=== PATIENT | female | born 1985 | race Caucasian/White ===

== ENCOUNTER 2016-08-23 23:53 | Outpatient (CLI) | payer OTHER ==
[~2016-08-23 23:53] MED LIST: MACROBID100 MG PO; ZOFRAN ODT4 MG PO
[2016-08-24 00:22] VITALS: BP 117/72
[2016-08-24 00:33] VITALS: BP 117/72
[2016-08-24] MEDS ORDERED: BUPRENORPHINE HC2 MG SL (00:47)
[2016-08-24] MEDS ORDERED: PRENATAL TABLE1 EAC3 PO (00:48)
[2016-08-24] MEDS ORDERED: IRON325 MG PO (00:49)
== END 2016-08-24 02:03 | disposition home or self-care (01) ==
LOC: LDRP-OP 23:53 → 2WEST 23:54 → LDRP-OP 10-28 14:43
DX: O47.03 False labor before 37 completed weeks of gestation, third trimester (principal); Z3A.35 35 weeks gestation of pregnancy; O34.219 Maternal care for unspecified type scar from previous cesarean delivery
CPT/HCPCS: 59025; G0378

== ENCOUNTER 2016-09-12 01:34 | Outpatient (CLI) | payer OTHER ==
[~2016-09-12] VITALS: Ht 165.1 cm; Wt 70.0 kg
[~2016-09-12 01:34] MED LIST changes: +BUPRENORPHINE HC2 MG SL; +IRON325 MG PO; +PRENATAL TABLE1 EAC3 PO
[2016-09-12 01:59] VITALS: BP 120/72
== END 2016-09-12 02:56 | disposition home or self-care (01) ==
LOC: LDRP-OP 01:34 → 2WEST 01:35 → LDRP-OP 10-22 02:09
DX: O47.1 False labor at or after 37 completed weeks of gestation (principal); O99.89 Other specified diseases and conditions complicating pregnancy, childbirth and the puerperium; Z3A.37 37 weeks gestation of pregnancy
CPT/HCPCS: 59025; G0378

== ENCOUNTER 2016-09-21 09:07 | Inpatient (IN) | payer OTHER ==
[~2016-09-21] VITALS: Ht 165.1 cm; Wt 70.5 kg
[2016-09-21 09:57] LABS: EOSINOPHIL (%) 1.3 % (0-5); EOSINOPHIL COUNT 0.1 K/uL (0-0.3); HEMATOCRIT 34.5 % (36.0-46.0); IMMATURE GRANULOCYTE (%) 1.4 % (0.0-0.7); IMMATURE GRANULOCYTE COUNT 0.1 K/uL; LYMPHOCYTE COUNT 2.5 K/uL (1.0-2.8); MCH 31.8 PG (29.0-34.0); MCHC 33.6 G/DL (30.0-36.0); MCV 94.5 FL (83-99); MONOCYTE (%) 7.6 % (3-12); MONOCYTE COUNT 0.8 K/uL (0-0.8); NEUTROPHIL (%) 64.7 % (45-76); NEUTROPHIL COUNT 6.6 K/uL (1.8-6.4); PLATELET COUNT 201 K/uL (156-360); RBC DIS.WIDTH-SD 48.4 % (39-53); RED BLOOD COUNT 3.65 M/uL (3.80-5.20); WHITE BLOOD COUNT 10.1 K/uL (4.1-10.2)
[2016-09-21 10:25] LABS: ANION GAP 9 MEQ/L (2-14); CHLORIDE 105 MEQ/L (99-109); SAMPLE HEMOLYSIS CHECK 0; SAMPLE ICTERIC CHECK 0; SAMPLE LIPEMIA CHECK 0; SODIUM 135 MEQ/L (136-147)
[2016-09-21 10:30] LABS: GFR ESTIMATE (CALCULATED) > 59 mL/min/; GLUCOSE 87 mg/dL (70-99); UREA NITROGEN (BUN) 5 mg/dL (9-23)
[2016-09-21 11:12] LABS: AMPHETAMINES QUANT VALUE 0 NG/ML; BARBITUATES QUANT VALUE 0 NG/ML; BENZODIAZEPINES QUANT VALUE 0 NG/ML; BENZODIAZEPINES, URINE SCREEN Negative (200 ng/mL); MARIJUANA QUANT VALUE 0 NG/ML; OPIATES QUANTITATIVE VALUE 0 NG/ML; PHENCYCLIDINE QUANT VALUE 0 NG/ML
[2016-09-21 14:41] VITALS: BP 126/70
[2016-09-21 15:19] VITALS: BP 121/79
[2016-09-21 16:02] VITALS: BP 120/68
[2016-09-21 19:00] VITALS: BP 107/66
[2016-09-21 21:00] VITALS: BP 115/66
[2016-09-21 23:00] VITALS: BP 108/59
[2016-09-22 01:40] VITALS: BP 100/58
[2016-09-22 03:26] VITALS: BP 99/58
[2016-09-22 07:10] VITALS: BP 102/50
[2016-09-22 07:13] LABS: EOSINOPHIL (%) 0.4 % (0-5); EOSINOPHIL COUNT 0.1 K/uL (0-0.3); HEMATOCRIT 29.6 % (36.0-46.0); IMMATURE GRANULOCYTE (%) 0.6 % (0.0-0.7); IMMATURE GRANULOCYTE COUNT 0.1 K/uL; LYMPHOCYTE COUNT 2.4 K/uL (1.0-2.8); MCH 32.1 PG (29.0-34.0); MCHC 33.8 G/DL (30.0-36.0); MCV 94.9 FL (83-99); MEAN PLAT.VOLUME 11.2 uM^3 (9.5-12.4); MONOCYTE (%) 5.6 % (3-12); MONOCYTE COUNT 0.8 K/uL (0-0.8); NEUTROPHIL (%) 76.5 % (45-76); NEUTROPHIL COUNT 10.8 K/uL (1.8-6.4); PLATELET COUNT 207 K/uL (156-360); RBC DIS.WIDTH-SD 48.4 % (39-53); RED BLOOD COUNT 3.12 M/uL (3.80-5.20)
[2016-09-22 07:16] LABS: WHITE BLOOD COUNT 14.1 K/uL (4.1-10.2)
[2016-09-22 11:27] VITALS: BP 101/58
[2016-09-22 23:16] VITALS: BP 118/65
[2016-09-23 02:50] VITALS: BP 109/57
[2016-09-23 08:30] VITALS: BP 123/68
[2016-09-23] MEDS ORDERED: OXYCONTIN10 MG PO (09:52)
[2016-09-23] MEDS ORDERED: DOCUSATE SODIU100 MG PO (09:52)
[2016-09-23] MEDS ORDERED: IBUPROFEN800 MG PO (09:52)
[2016-09-23 11:46] VITALS: BP 116/70
== END 2016-09-23 12:30 | disposition home or self-care (01) | DRG 765 ==
LOC: 2WEST 09:07 → 2SOUTH 10:25 → 2WEST 09-23 12:30
PROVIDERS: Obstetrics & Gynecology
PROC: 10D00Z1 Extraction of Products of Conception, Low, Open Approach (ICD-10-PCS; principal; 2016-09-21)
DX: O34.211 Maternal care for low transverse scar from previous cesarean delivery (principal); O99.324 Drug use complicating childbirth; F11.20 Opioid dependence, uncomplicated; Z3A.39 39 weeks gestation of pregnancy; Z37.0 Single live birth; F17.210 Nicotine dependence, cigarettes, uncomplicated; F12.10 Cannabis abuse, uncomplicated; O40.3XX0 Polyhydramnios, third trimester, not applicable or unspecified; O99.334 Smoking (tobacco) complicating childbirth; D62 Acute posthemorrhagic anemia; O99.02 Anemia complicating childbirth
CPT/HCPCS: 80048; 80306 90; 85025; 86850; 86900; 86901; J0131; J0571; J0690; J1100; J1170; J1885; J2250; J2270; J2274; J2405; J3010; J7120